=== PATIENT | female | born 1975 | race Caucasian/White ===

== ENCOUNTER 2018-05-01 13:39 | Emergency (ER) | END 2018-05-01 17:03 | disposition home or self-care (01) ==

== ENCOUNTER 2019-01-12 19:58 | Emergency (ER) | payer MEDICAID ==
[~2019-01-12] VITALS: Ht 162.6 cm; Wt 66.0 kg
[~2019-01-12 19:58] MED LIST: ALBU18HF INHALATION; ALBU8.5H8; BECL7.3A5
[2019-01-12 20:35] VITALS: BP 158/86; Ht 162.6 cm; Wt 66.0 kg
[2019-01-12] MEDS ORDERED: ALBUTEROL 0.5% (NEB) 2.5 MG/0.5 ML AMP INH STA ×2 (21:19→22:50)
[2019-01-12] MEDS ORDERED: LEVALBUTEROL (NEB) 1.25 MG/0.5 ML AMP INH STA (21:19)
[2019-01-12 21:25] VITALS: RESP 24
[2019-01-12] MEDS ORDERED: DEXAMETHASONE 10 MG/ML 1 ML INJ IM STA (21:34)
[2019-01-13] MEDS ORDERED: ATRO INH (00:14)
[2019-01-13] MEDS ORDERED: PRED50 PO (00:14)
[2019-01-13] MEDS ORDERED: ALBU2.5V3 NEB (00:14)
[2019-01-13] MEDS ORDERED: ALBU8.5H8 INH (00:14)
[2019-01-13 00:25] VITALS: PULSE 117
[2019-01-13] MEDS ORDERED: ACETAMINOPHEN 325 MG TAB PO ONE (00:30)
--- NOTE | 2019-01-14 03:40 | ERD ---
ER Documentation Chief Complaint Chief Complaint SOB X 1 DAY; HX OF ASTHMA; NO RELIEF FROM INHALER HPI This is a 43 year old F with hx of asthma who presents to the ED with complaints of an asthma exacerbation since yesterday. Pt states she started to feel short of breath last night and woke up wheezing in the nighttime. She states her sx gradually progressed until she felt short of breath, prompting her to come in today. She was using her albuterol inhaler and nebulized solution but ran out. She reports chest tightness, wheezing and shortness of breath. Does not know wh at triggered her asthma. Denies any recent URI type symptoms. States she was last hospitalized for her asthma at [facility] about 3 months ago. States that oral glucocorticoids usually help with her asthma exacerbations. ROS All systems reviewed and are negative except as per history of present illness. Medications Home Meds Active Scripts Albuterol Sulfate* (Albuterol Sulfate* Neb) 0.083%-3 Ml Neb, 2.5 MG NEB Q3H PRN for WHEEZING AND SOB, #30 VIAL Prov:JUAN CONTRERASC 01/13/19 Ipratropium [place]* (Atrovent HFA*) 12.9 Gm Aer.w.adap, 2 PUFF INH Q6 PRN for SHORTNESS OF BREATH, #1 EA Prov:JUAN CONTRERAS-C 01/13/19 Albuterol Sulfate* (Proair HFA*) 8.5 Gm Hfa.aer.ad, 2 PUFF INH Q4, #1 INHALER Prov:JUAN CONTRERAS-C 01/13/19 Prednisone (Prednisone) 50 Mg Tab, 50 MG PO DAILY for 5 Days, #5 TAB Prov:JUAN CONTRERAS-C 01/13/19 Albuterol Sulfate* (Ventolin HFA*) 18 Gm Hfa.aer.ad, 2 PUFF INHALATION Q4H, #1 INHALER Prov:ROJELIO GAN PA-C 05/01/18 Reported Medications Beclomethasone Dipropionate (Qvar) 7.3 Gm Aer.w.adap 03/02/11 Albuterol Sulfate* (Proair HFA*) 8.5 Gm Hfa.aer.ad 03/02/11 Allergies Allergies: Coded Allergies: No Known Drug Allergy (Unverified Allergy, Intermediate, NONE, 03/02/11) PMhx/Soc History of Surgery: Yes (Cholecystectomy) Anesthesia Reaction: No Hx Neurological Disorder: No Hx Respiratory Disorders: Yes (Asthma) Hx Cardiac Disorders: No Hx Psychiatric Problems: No Hx Miscellaneous Medical Probl: No Hx Alcohol Use: Yes (Social) Hx Substance Use: No Hx Tobacco Use: Yes (Cigarettes) Smoking Status: Former smoker Physical Exam Vitals Vital Signs Date Temp Pulse Resp B/P (MAP) Pulse Ox O2 O2 Flow FiO2 Time Delivery Rate 01/13/19 117 97 Room Air 00:25 01/12/19 100 Room Air 23:38 01/12/19 114 24 99 21 23:04 01/12/19 Nasal 21:48 Cannula 01/12/19 129 28 98 Nasal 2.0 21:27 Cannula 01/12/19 128 24 97 Room Air 21:25 01/12/19 99.5 125 20 158/86 97 20:35 (110) Physical Exam Const: + Mild respiratory distress. Appears anxious, stating "I can't breath," O2 sat of 97% on room air Head: Atraumatic Eyes: Normal Conjunctiva ENT: Normal External Ears, Nose and Mouth. Neck: Full range of motion. No meningismus. Resp: + Mild respiratory distress. Inspiratory and expiratory wheezing. No use of accessory muscles or respiration. Cardio: + Tachycardic. Regular rhythm, no murmurs, rubs or gallops and rhythm, no murmurs Abd: Soft, non tender, non distended. Normal bowel sounds Skin: No petechiae or rashes Ext: No cyanosis, or edema Neur: Awake and alert Psych: + Appears anxious Results 24 hrs Current Medications Medications Dose Sig/Gurpreet Start Time Status Last (Trade) Ordered Route PRN Stop Time Admin Dose Reason Admin Albuterol 5 mg ONCE STAT 01/12/19 DC (Proventil INH 21:19 01/12/19 0.5% (Neb)) 21:22 2.5 mg ONCE STAT 01/12/19 DC 01/12/19 Levalbuterol INH 21:19 01/12/19 21:26 (Xopenex 21:22 Neb) 10 mg ONCE STAT 01/12/19 DC 01/12/19 Dexamethasone IM 21:34 01/12/19 21:39 (Decadron) 21:36 Albuterol 15 mg ONCE STAT 01/12/19 DC 01/12/19 (Proventil INH 22:50 01/12/19 23:04 0.5% (Neb)) 22:52 650 mg ONCE ONCE 01/13/19 DC 01/13/19 Acetaminophen PO 00:30 01/13/19 00:29 (Tylenol 00:30 Tab) Procedures/MDM This is a 43 yo F with hx of asthma who presents to the ED with an asthma exacerbation after running out of her medications. O2 saturation on room air was 97% however was feeling short of breath and given 2L of supplemental O2. Pt had significant wheezing on physical exam which improved status post Decadron and 1 hour treatment of albuterol and xopenex. On reassessment, pt was talking in clear sentences, in no respiratory distress with improvement of her lung sounds. She requested Tylenol for her chest tightness which was given. At this time, pts respiratory status has stabilized while in the department and is appropriate for outpatient management. Exam not consistent with impending respiratory failure or cardiovascular collapse. I refilled her Albuterol MDI and neb solution and provided a short course of steroids. She was told to follow up with her PCP in 2 days, otherwise return to the ED for any new or worsening symptoms. Prior to discharge, patients vital signs have been reviewed PRESCRIPTIONS: Proair HFA, albuterol neb solution, Prednisone SPECIALIST FOLLOW UP RECOMMENDED: None Patient has been advised to follow up with primary care in 1-2 days. Patient's blood pressure was elevated (>120/80) but appears stable without evidence of hypertension emergency or urgency. The patient was counseled about the risks of hypertension and urged to pursue outpatient monitoring and therapy within a week with their primary care physician Departure Diagnosis: Primary Impression: Asthma with acute exacerbation Asthma severity: unspecified severity Asthma persistence: intermittent Qualified Codes: J45.21 - Mild intermittent asthma with (acute) exacerbation Condition: Stable Patient Instructions: Asthma, Acute (Adult) Referrals: COMMUNITY CLINICS YOU HAVE RECEIVED A MEDICAL SCREENING EXAM AND THE RESULTS INDICATE THAT YOU DO NOT HAVE A CONDITION THAT REQUIRES URGENT TREATMENT IN THE EMERGENCY DEPARTMENT. FURTHER EVALUATION AND TREATMENT OF YOUR CONDITION CAN WAIT UNTIL YOU ARE SEEN IN YOUR DOCTORS OFFICE WITHIN THE NEXT 1-2 DAYS. IT IS YOUR RESPONSIBILITY TO MAKE AN APPOINTMENT FOR FOLOW-UP CARE. IF YOU HAVE A PRIMARY DOCTOR --you should call your primary doctor and schedule an appointment IF YOU DO NOT HAVE A PRIMARY DOCTOR YOU CAN CALL OUR PHYSICIAN REFERRAL HOTLINE AT IF YOU CAN NOT AFFORD TO SEE A PHYSICIAN YOU CAN CHOSE FROM THE FOLLOWING [facility] [address] [facility] [address] [facility] [address] [facility] [address] [facility] [address] [facility] [facility]. [address] Additional Instructions: He has been given a list of clinics to follow-up within 2 days. Return to the ED for any new or worsening symptoms. JUAN CONTRERAS PA-C Jan 14, 2019 03:21
== END 2019-01-13 00:29 | disposition home or self-care (01) ==
LOC: FTE 19:58
DX: J45.21 Mild intermittent asthma with (acute) exacerbation (principal); Z87.891 Personal history of nicotine dependence
CPT/HCPCS: 94664; 96372; J1100; Z7502; Z7610

== ENCOUNTER 2019-02-19 01:36 | Emergency (ER) | payer MEDICAID ==
[~2019-02-19] VITALS: Ht 162.6 cm; Wt 66.4 kg
[~2019-02-19 01:36] MED LIST changes: +ALBU2.5V3 NEB; +ALBU8.5H8 INH; +ATRO INH; +PRED50 PO
[2019-02-19 01:37] VITALS: Ht 162.6 cm; Wt 66.4 kg
[2019-02-19] MEDS ORDERED: IPRATROPIUM (NEB) 0.5 MG/2.5 ML AMP INH STA (01:42)
[2019-02-19] MEDS ORDERED: ALBUTEROL 0.5% (NEB) 2.5 MG/0.5 ML AMP INH STA ×2 (01:42→03:13)
[2019-02-19] MEDS ORDERED: DEXAMETHASONE 10 MG/ML 1 ML INJ IM ONE (02:00)
--- NOTE | 2019-02-19 03:09 | ERD ---
ER Documentation Chief Complaint Chief Complaint ASTHMA ATTACK, CHEST PRESSURE, WHEEZING HPI This a 43-year female complains of sudden onset of shortness of breath of 2 hours ago with worsening shortness of breath. Patient has history of asthma says she feels like she is having an asthma attack. She says this feels like previous episodes. She said it was might of been triggered because she was dusting around the house. She has a mild cough as well. Denies any fevers or chills. Denies any other current complaints. ROS All systems reviewed and are negative except as per history of present illness. Medications Home Meds Active Scripts Albuterol Sulfate* (Albuterol Sulfate* Neb) 0.083%-3 Ml Neb, 2.5 MG NEB Q3H PRN for WHEEZING AND SOB, #30 VIAL Prov:JUAN CONTRERAS PA-C 01/13/19 Ipratropium [place]* (Atrovent HFA*) 12.9 Gm Aer.w.adap, 2 PUFF INH Q6 PRN for SHORTNESS OF BREATH, #1 EA Prov:JUAN CONTRERASC 01/13/19 Albuterol Sulfate* (Proair HFA*) 8.5 Gm Hfa.aer.ad, 2 PUFF INH Q4, #1 INHALER Prov:JUAN CONTRERASC 01/13/19 Prednisone (Prednisone) 50 Mg Tab, 50 MG PO DAILY for 5 Days, #5 TAB Prov:JUAN CONTRERASC 01/13/19 Albuterol Sulfate* (Ventolin HFA*) 18 Gm Hfa.aer.ad, 2 PUFF INHALATION Q4H, #1 INHALER Prov:ROJELIO GAN PA-C 05/01/18 Reported Medications Beclomethasone Dipropionate (Qvar) 7.3 Gm Aer.w.adap 03/02/11 Albuterol Sulfate* (Proair HFA*) 8.5 Gm Hfa.aer.ad 03/02/11 Allergies Allergies: Coded Allergies: No Known Drug Allergy (Unverified Allergy, Intermediate, NONE, 03/02/11) PMhx/Soc History of Surgery: Yes (Cholecystectomy) Anesthesia Reaction: No Hx Neurological Disorder: No Hx Respiratory Disorders: Yes (Asthma) Hx Cardiac Disorders: No Hx Psychiatric Problems: No Hx Miscellaneous Medical Probl: No Hx Alcohol Use: Yes (Social) Hx Substance Use: No Hx Tobacco Use: Yes (Cigarettes) Smoking Status: Current every day smoker Physical Exam Vitals Vital Signs Date Temp Pulse Resp B/P (MAP) Pulse Ox O2 O2 Flow FiO2 Time Delivery Rate 02/19/19 113 22 139/76 100 Nasal 03:00 (97) Cannula 02/19/19 112 20 99 Nasal 2.0 01:52 Cannula 02/19/19 Nasal 2 01:51 Cannula 02/19/19 97.9 125 25 150/89 97 01:37 (109) Physical Exam Const: No acute distress Head: Atraumatic Eyes: Normal Conjunctiva ENT: Normal External Ears, Nose and Mouth. Neck: Full range of motion. No meningismus. Resp: Clear to auscultation bilaterally Cardio: Regular rate and rhythm, no murmurs Abd: Soft, non tender, non distended. Normal bowel sounds Skin: No petechiae or rashes Back: No midline or flank tenderness Ext: No cyanosis, or edema Neur: Awake and alert Psych: Normal Mood and Affect Results 24 hrs Current Medications Medications Dose Sig/Gurpreet Start Time Status Last (Trade) Ordered Route PRN Stop Time Admin Dose Reason Admin Albuterol 10 mg ONCE STAT 02/19/19 DC 02/19/19 (Proventil INH 01:42 02/19/19 01:52 0.5% (Neb)) 01:43 Ipratropium 1 mg ONCE STAT 02/19/19 DC 02/19/19 [place] INH 01:42 02/19/19 01:52 (Atrovent 01:43 0.02% (Neb)) 10 mg ONCE ONCE 02/19/19 DC 02/19/19 Dexamethasone IM 02:00 02/19/19 01:53 (Decadron) 02:01 Procedures/MDM Emergency department course: Patient seen and [place] charges. Placed MFM evaluation. Placed on nuclear monitoring technician. Given continuous albuterol and complete continuous ipratropium over the course of 1 hour. Given Decadron 10 mg intramuscularly. Stat chest x-ray. Chest X-ray 1V Interpreted by me: Soft Tissue: No acute abnormali ties Bones: No acute abnormalities Mediastinum/Cardiac Silhouette/Lungs: [No acute abnormalities] Medical decision making: Patient's respiratory status has stabilized while in the department and is appropriate for outpatient work up. Exam and work up not consistent w/ impending respiratory failure or cardiovascular collapse. Departure Diagnosis: Primary Impression: Asthma with acute exacerbation Asthma severity: moderate Asthma persistence: unspecified Qualified [place]: J45.901 - Unspecified asthma with (acute) exacerbation Condition: Stable JORGITO WISE Feb 19, 2019 03:09
[2019-02-19] MEDS ORDERED: traMADol 50 MG TAB PO ONE (05:00)
[2019-02-19] MEDS ORDERED: AZIT250T PO (05:30)
[2019-02-19] MEDS ORDERED: ALBU2.5V3 NEB (05:30)
[2019-02-19] MEDS ORDERED: PRED20TA PO (05:30)
[2019-02-19] MEDS ORDERED: ALBU18HF INHALATION (05:30)
[2019-02-19 06:17] VITALS: BP 132/80; PULSE 112; RESP 20
== END 2019-02-19 06:18 | disposition home or self-care (01) ==
LOC: E/R 01:36
DX: J45.901 Unspecified asthma with (acute) exacerbation (principal); F17.210 Nicotine dependence, cigarettes, uncomplicated
CPT/HCPCS: 71045; 81025; 94644; 94645; 96372; J1100; Z7502; Z7610

== ENCOUNTER 2019-05-09 03:39 | Emergency (ER) | payer MEDICAID ==
[~2019-05-09] VITALS: Ht 162.6 cm; Wt 68.3 kg
[~2019-05-09 03:39] MED LIST changes: +AZIT250T PO; +PRED20TA PO
[2019-05-09 03:40] VITALS: Ht 162.6 cm; Wt 68.3 kg
[2019-05-09] MEDS ORDERED: DEXAMETHASONE 10 MG/ML 1 ML INJ IM STA (03:56)
[2019-05-09] MEDS ORDERED: LEVALBUTEROL (NEB) 1.25 MG/0.5 ML AMP INH STA ×2 (03:56→04:59)
[2019-05-09] MEDS ORDERED: IPRATROPIUM (NEB) 0.5 MG/2.5 ML AMP INH STA (03:56)
--- NOTE | 2019-05-09 03:59 | ERD ---
ER Documentation Chief Complaint Chief Complaint SOB X1DAY- COUGHING, COUPLES DAYS; HX OF ASTHMA-LAST USE ALBUTEROL X1HR HPI 43-year-old female with a history of asthma presenting with shortness of breath since yesterday that has worsened overnight. She is not sure what triggered it. She is complaining of shortness of breath and audible wheezing. She used her inhaler as well as her nebulizer last night with some improvement. However she is having significantly worsening shortness of breath so she decided to come in for evaluation. She thinks she has been having some allergy symptoms versus URI symptoms with runny nose and cough. No fevers or chills. No colored phlegm. ROS All systems reviewed and are negative except as per history of present illness. Medications Home Meds Active Scripts Prednisone* (Prednisone*) 20 Mg Tab, 40 MG PO DAILY for 4 Days, TAB Prov:LESLYMARCELINOJORGITO Lona 02/19/19 Azithromycin* (Zithromax*) 250 Mg Tablet, 250 MG PO .ZPACK DIRECTED, #6 TAB TAKE 500 MG (2 TABS) THE FIRST DAY THEN 250 MG (1 TAB) DAYS 2-5 Prov:BILLIEJORGITO S. 02/19/19 Albuterol Sulfate* (Ventolin HFA*) 18 Gm Hfa.aer.ad, 2 PUFF INHALATION Q4H, #1 INHALER Prov:MARIA LUZMAXIJORGITO Lona 02/19/19 Albuterol Sulfate* (Albuterol Sulfate* Neb) 0.083%-3 Ml Neb, 2.5 MG NEB Q4 PRN for SHORTNESS OF BREATH, #30 EA Prov:LESLYMARCELINOJORGITO S. 02/19/19 Albuterol Sulfate* (Albuterol Sulfate* Neb) 0.083%-3 Ml Neb, 2.5 MG NEB Q3H PRN for WHEEZING AND SOB, #30 VIAL Prov:DISHIGRIKIANZEPYUR N PA-C 01/13/19 Ipratropium [place]* (Atrovent HFA*) 12.9 Gm Aer.w.adap, 2 PUFF INH Q6 PRN for SHORTNESS OF BREATH, #1 EA Prov:DISHIGRIKIAN,ZEPYUR N PA-C 01/13/19 Albuterol Sulfate* (Proair HFA*) 8.5 Gm Hfa.aer.ad, 2 PUFF INH Q4, #1 INHALER Prov:SUZANNESUNSHINEJUAN Edmondson PA-C 01/13/19 Prednisone (Prednisone) 50 Mg Tab, 50 MG PO DAILY for 5 Days, #5 TAB Prov:NORMA CONTRERASJULIOCESAR Edmondson PA-C 01/13/19 Albuterol Sulfate* (Ventolin HFA*) 18 Gm Hfa.aer.ad, 2 PUFF INHALATION Q4H, #1 INHALER Prov:ROJELIO GAN PA-C 05/01/18 Reported Medications Beclomethasone Dipropionate (Qvar) 7.3 Gm Aer.w.adap 03/02/11 Albuterol Sulfate* (Proair HFA*) 8.5 Gm Hfa.aer.ad 03/02/11 Allergies Allergies: Coded Allergies: No Known Drug Allergy (Unverified Allergy, Intermediate, NONE, 03/02/11) PMhx/Soc History of Surgery: Yes (Cholecystectomy) Anesthesia Reaction: No Hx Neurological Disorder: No Hx Respiratory Disorders: Yes (Asthma) Hx Cardiac Disorders: No Hx Psychiatric Problems: No Hx Miscellaneous Medical Probl: No Hx Alcohol Use: Yes (Social) Hx Substance Use: No Hx Tobacco Use: Yes (Cigarettes) Smoking Status: Current some day smoker FmHx Family History: No diabetes Physical Exam Vitals Vital Signs Date Temp Pulse Resp B/P (MAP) Pulse Ox O2 O2 Flow FiO2 Time Delivery Rate 05/09/19 126 18 99 05:14 05/09/19 120 20 99 21 04:13 05/09/19 97.9 125 24 136/90 99 Room Air 03:46 (105) 05/09/19 98.4 129 30 150/83 98 03:40 (105) Physical Exam Const: Appears to be in mild respiratory distress but able to speak in full sentences. Nontoxic-appearing Head: Atraumatic Eyes: Normal Conjunctiva ENT: Normal External Ears, Nose and Mouth. Neck: Full range of motion. No meningismus. Resp: Tachypneic with wheezing in all lung rae. No rales or rhonchi. No retractions Cardio: Tachycardic with regular rhythm, no murmurs Abd: Soft, non tender, non distended. Normal bowel sounds Skin: No petechiae or rashes Back: No midline or flank tenderness Ext: No cyanosis, or edema Neur: Awake and alert Psych: Normal Mood and Affect Results 24 hrs Current Medications Medications Dose Sig/Gurpreet Start Time Status Last (Trade) Ordered Route PRN Stop Time Admin Dose Reason Admin 5 mg ONCE STAT 05/09/19 DC 05/09/19 Levalbuterol INH 03:56 04:12 (Xopenex 05/09/19 03:58 Neb) Ipratropium 1 mg ONCE STAT 05/09/19 DC 05/09/19 [place] INH 03:56 04:12 (Atrovent 05/09/19 03:58 0.02% (Neb)) 10 mg ONCE STAT 05/09/19 DC 05/09/19 Dexamethasone IM 03:56 04:03 (Decadron) 05/09/19 03:58 Ipratropium 0.5 mg ONCE STAT 05/09/19 DC 05/09/19 [place] NEB 04:59 05:13 (Atrovent 05/09/19 05:00 0.02% (Neb)) 1.25 mg ONCE STAT 05/09/19 DC 05/09/19 Levalbuterol INH 04:59 05:13 (Xopenex 05/09/19 05:00 Neb) Albuterol 10 mg ONCE STAT 05/09/19 DC (Proventil INH 05:48 0.5% (Neb)) 05/09/19 05:49 Procedures/MDM Initial Nursing notes reviewed. Previous Medical Records requested via the Electronic Health Record. EMERGENCY DEPARTMENT COURSE / MEDICAL DECISION MAKING: The patients shortness of breath is secondary to an asthma exacerbation. Vitals were tachycardia and tachypnea. Considered URI, pneumonia, allergic reaction, COPD, PE, ACS, pericardial effusion but less likely based on history and physical. I do not suspect pneumonia, pneumothorax, or sepsis. Nebulized albuterol/ipratropium ordered and steroids administered. Upon reassessment, patients symptoms have not improved significantly. She required more treatments while here. At the end of my shift, she is still not ready for discharge. She will be continued to be observed in the ER with another breathing treatment. If she does not respond well, she may need admission for close respiratory monitoring and frequent treatments. Patient will be signed out to the oncoming ED physician, Dr. Piña Critical Care: Time: 40 minutes Treatments/Evaluations: Emergent and rapid respiratory assessment and management with continuous monitoring. Advanced airway equipment at the ready, while the patient's respiratory symptoms were stabilized. Departure Diagnosis: Primary Impression: Asthma with acute exacerbation Asthma severity: moderate Asthma persistence: persistent Qualified Codes: J45.41 - Moderate persistent asthma with (acute) exacerbation Condition: CHRISTINA Moody MD May 09, 2019 03:59
[2019-05-09] MEDS ORDERED: IPRATROPIUM (NEB) 0.5 MG/2.5 ML AMP NEB STA (04:59)
[2019-05-09] MEDS ORDERED: ALBUTEROL 0.5% (NEB) 2.5 MG/0.5 ML AMP INH STA (05:48)
[2019-05-09] MEDS ORDERED: PRED20TA PO (09:00)
[2019-05-09] MEDS ORDERED: ALBU18HF INHALATION (09:00)
[2019-05-09 09:11] VITALS: BP 125/72; PULSE 98; RESP 18
== END 2019-05-09 09:14 | disposition home or self-care (01) ==
LOC: E/R 03:39
DX: J45.41 Moderate persistent asthma with (acute) exacerbation (principal); F17.210 Nicotine dependence, cigarettes, uncomplicated
CPT/HCPCS: 94640; 94644; 94645; 94664; 96372; J1100

== ENCOUNTER 2019-05-24 19:31 | Emergency (ER) | payer MEDICAID ==
[~2019-05-24] VITALS: Ht 162.6 cm; Wt 67.0 kg
[2019-05-24 19:34] VITALS: Ht 162.6 cm; Wt 67.0 kg
[2019-05-24] MEDS ORDERED: IPRATROPIUM (NEB) 0.5 MG/2.5 ML AMP NEB STA (20:21)
[2019-05-24] MEDS ORDERED: predniSONE 20 MG TAB PO STA (20:21)
[2019-05-24] MEDS ORDERED: ALBUTEROL 0.083% (NEB) 2.5 MG/3 ML AMP NEB STA (20:21)
--- NOTE | 2019-05-24 20:29 | ERD ---
ER Documentation Chief Complaint Chief Complaint Pt reports hx asthma, nebs and inhaler not helping HPI 43-year-old female with past medical history of asthma, anemia who presents with complaint of worsening shortness of breath and dyspnea despite home nebulizer treatment. States she recently ran out of nebulizer treatments. She has had intermittent cough that is productive of green sputum but otherwise denies fevers, chills, nausea, vomiting, diarrhea, abdominal pain, urinary symptoms. At time examination patient nontoxic-appearing with normal triage vital signs and no signs of respiratory distress. ROS All systems reviewed and are negative except as per history of present illness. Medications Home Meds Active Scripts Ipratropium [place]* (Atrovent HFA*) 12.9 Gm Aer.w.adap, 2 PUFF INH Q6 PRN for SHORTNESS OF BREATH, #1 EA Prov:RADHA BRANCH PA-C 05/24/19 Albuterol Sulfate* (Ventolin HFA*) 18 Gm Hfa.aer.ad, 2 PUFF INHALATION Q6H, #1 INHALER Prov:RADHA BRANCH PA-C 05/24/19 Prednisone* (Prednisone*) 20 Mg Tab, 40 MG PO DAILY for 4 Days, TAB Prov:RADHA BRANCH PA-C 05/24/19 Prednisone* (Prednisone*) 20 Mg Tab, 60 MG PO DAILY for 4 Days, TAB Prov:YING MA MD 05/09/19 Albuterol Sulfate* (Ventolin HFA*) 18 Gm Hfa.aer.ad, 2 PUFF INHALATION Q4H, #1 INHALER Prov:YING MA MD 05/09/19 Prednisone* (Prednisone*) 20 Mg Tab, 40 MG PO DAILY for 4 Days, TAB Prov:JORGITO WISE 02/19/19 Azithromycin* (Zithromax*) 250 Mg Tablet, 250 MG PO .NikkiPACK DIRECTED, #6 TAB TAKE 500 MG (2 TABS) THE FIRST DAY THEN 250 MG (1 TAB) DAYS 2-5 Prov:JORGITO WISE 02/19/19 Albuterol Sulfate* (Ventolin HFA*) 18 Gm Hfa.aer.ad, 2 PUFF INHALATION Q4H, #1 INHALER Prov:JORGITO WISE 02/19/19 Albuterol Sulfate* (Albuterol Sulfate* Neb) 0.083%-3 Ml Neb, 2.5 MG NEB Q4 PRN for SHORTNESS OF BREATH, #30 EA Prov:JORGITO WISE 02/19/19 Albuterol Sulfate* (Albuterol Sulfate* Neb) 0.083%-3 Ml Neb, 2.5 MG NEB Q3H PRN for WHEEZING AND SOB, #30 VIAL Prov:JUAN CONTRERAS PA-C 01/13/19 Ipratropium [place]* (Atrovent HFA*) 12.9 Gm Aer.w.adap, 2 PUFF INH Q6 PRN for SHORTNESS OF BREATH, #1 EA Prov:KYAIGRIKIJUAN GONSALEZ PA-C 01/13/19 Albuterol Sulfate* (Proair HFA*) 8.5 Gm Hfa.aer.ad, 2 PUFF INH Q4, #1 INHALER Prov:JUAN CONTRERAS PA-C 01/13/19 Prednisone (Prednisone) 50 Mg Tab, 50 MG PO DAILY for 5 Days, #5 TAB Prov:JUAN CONTRERAS N PA-C 01/13/19 Albuterol Sulfate* (Ventolin HFA*) 18 Gm Hfa.aer.ad, 2 PUFF INHALATION Q4H, #1 INHALER Prov:ROJELIO GANC 05/01/18 Reported Medications Beclomethasone Dipropionate (Qvar) 7.3 Gm Aer.w.adap 03/02/11 Albuterol Sulfate* (Proair HFA*) 8.5 Gm Hfa.aer.ad 03/02/11 Allergies Allergies: Coded Allergies: No Known Drug Allergy (Unverified Allergy, Intermediate, NONE, 03/02/11) PMhx/Soc Medical and Surgical Hx: pt denies Surgical Hx History of Surgery: No Anesthesia Reaction: No Hx Neurological Disorder: No Hx Respiratory Disorders: Yes (asthma) Hx Cardiac Disorders: No Hx Psychiatric Problems: No Hx Miscellaneous Medical Probl: No Hx Alcohol Use: No Hx Substance Use: No Hx Tobacco Use: No Smoking Status: Never smoker FmHx Family History: No diabetes, No coronary disease, No other Physical Exam Vitals Vital Signs Date Temp Pulse Resp B/P (MAP) Pulse Ox O2 O2 Flow FiO2 Time Delivery Rate 7/11/19 82 18 97 21 20:41 05/24/19 99.8 99 24 126/68 99 19:34 (87) Physical Exam Const: No acute distress Head: Atraumatic Eyes: Normal Conjunctiva ENT: Normal External Ears, Nose and Mouth. Neck: Full range of motion. No meningismus. Resp: Mild wheezing noted to bilateral lung rae, no crackles or rhonchi, g ood inspiratory effort Cardio: Regular rate and rhythm, no murmurs Abd: Soft, non tender, non distended. Normal bowel sounds Skin: No petechiae or rashes Back: No midline or flank tenderness Ext: No cyanosis, or edema Neur: Awake and alert Psych: Normal Mood and Affect Results 24 hrs Current Medications Medications Dose Sig/Gurpreet Start Time Status Last (Trade) Ordered Route PRN Stop Time Admin Dose Reason Admin Albuterol 2.5 mg ONCE STAT 05/24/19 DC 05/24/19 (Proventil NEB 20:21 20:37 0.083% (Neb)) 05/24/19 20:23 Ipratropium 0.5 mg ONCE STAT 05/24/19 DC 05/24/19 [place] NEB 20:21 20:37 (Atrovent 05/24/19 20:23 0.02% (Neb)) Prednisone 60 mg ONCE STAT 05/24/19 DC 05/24/19 (Prednisone) PO 20:21 20:32 05/24/19 20:23 Procedures/MDM Presents with cough and expiratory wheezing ML 2/2 asthma exacerbation. Mild exacerbation: No AMS, silent respirations, belly-breathing, or other sign of impending ventilatory failure. Patient diagnosed with asthma years prior. Never intubated or admitted to the hospital for asthma exacerbation. Unlikely PNA, CHF, COPD (Nonsmoker), FBAO, GERD. Workup Defer labs and imaging given clinically in exacerbation of known asthma with similar exacerbation presentations per patient. Therapies: Prednisone 60 mg PO. Albuterol 2.5-5mg q20min x3 OR 15mg/hr Ipratropium 0.5mg x1 Reassessment: Patient improved with albuterol and ipratropium in less than 3 hours. Disposition: Discharge home with return precautions. Aside from this acute exacerbation patient has been well controlled on baseline home regimen. Rx short steroid course, no plan to increase home asthma regimen. Advised to follow up with primary care physician within next 24-48 hours. Departure Diagnosis: Primary Impression: Asthma with acute exacerbation Condition: Stable RADHA BRANCH PA-C May 24, 2019 20:29
[2019-05-24 21:04] VITALS: BP 120/64; PULSE 85; RESP 18
[2019-05-24] MEDS ORDERED: ALBU18HF INHALATION (21:05)
[2019-05-24] MEDS ORDERED: PRED20TA PO (21:05)
[2019-05-24] MEDS ORDERED: ATRO INH (21:05)
== END 2019-05-24 21:09 | disposition home or self-care (01) ==
LOC: FTE 19:31
DX: J45.901 Unspecified asthma with (acute) exacerbation (principal)
CPT/HCPCS: 94664; J7512; Z7502; Z7610

== ENCOUNTER 2019-07-17 01:24 | Inpatient (IN) | payer MEDICAID ==
[~2019-07-17] VITALS: Ht 162.6 cm; Wt 68.9 kg
[~2019-07-17 01:24] MED LIST changes: +ALBU90AE INHALATION; +BECL10.6 IH; +LACT1CAP57 PO; +LEVO500T10 PO; +NEBU-113 MC; +PRED10TA PO
[2019-07-17] MEDS ORDERED: METHYLPREDNISOLONE 125 MG INJ IV STA (01:56)
[2019-07-17] MEDS ORDERED: MAGNESIUM SULFATE 2 GM/50 ML 50 ML IVPB STA (01:56)
[2019-07-17] MEDS ORDERED: SOD CHLORIDE 0.9% 1,000 ML IV STA (01:56)
[2019-07-17] MEDS ORDERED: LEVALBUTEROL (NEB) 1.25 MG/0.5 ML AMP INH STA ×2 (01:56→03:45)
[2019-07-17] MEDS ORDERED: IPRATROPIUM (NEB) 0.5 MG/2.5 ML AMP INH STA (01:56)
[2019-07-17] MEDS ORDERED: BISACODYL (EC) 5 MG TAB PO PRN (04:00)
[2019-07-17] MEDS ORDERED: ONDANSETRON 4 MG INJ IV PRN (04:00)
[2019-07-17] MEDS ORDERED: DOCUSATE SODIUM 100 MG CAP PO PRN (04:00)
[2019-07-17] MEDS ORDERED: NACL 0.9% 3 ML SYG IV SCH (04:00)
[2019-07-17] MEDS ORDERED: ACETAMINOPHEN 325 MG TAB PO PRN (04:00)
[2019-07-17] MEDS ORDERED: SOD CHLORIDE 0.9% 1,000 ML IV ONE ×2 (04:00)
[2019-07-17] MEDS ORDERED: morphine 2 MG INJ IV STA ×2 (04:27→15:29)
[2019-07-17] MEDS ORDERED: LEVALBUTEROL (NEB) 1.25 MG/0.5 ML AMP HHN PRN (04:30)
[2019-07-17] MEDS ORDERED: LEVALBUTEROL (NEB) 1.25 MG/0.5 ML AMP HHN SCH (05:00)
[2019-07-17] MEDS: LEVALBUTEROL (NEB) 1.25 MG/0.5 ML AMP HHN SCH ×5 (05:00→20:06)
[2019-07-17] MEDS: IPRATROPIUM (NEB) 0.5 MG/2.5 ML AMP HHN SCH ×5 (05:00→20:06)
[2019-07-17] MEDS: PANTOPRAZOLE (EC) 40 MG TAB PO SCH (06:39)
[2019-07-17] MEDS ORDERED: METHYLPREDNISOLONE 40 MG INJ IV SCH (09:00)
[2019-07-17] MEDS: METHYLPREDNISOLONE 40 MG INJ IV SCH ×2 (09:30→20:44)
[2019-07-17 09:37] VITALS: Ht 162.6 cm; Wt 68.9 kg
[2019-07-17 11:14] VITALS: BP 101/51; PULSE 95; RESP 18
[2019-07-17] MEDS: IBUPROFEN 600 MG TAB PO PRN (12:00)
[2019-07-17 15:19] VITALS: BP 116/61; PULSE 95; RESP 18
[2019-07-17] MEDS ORDERED: HYDROCODONE/APAP (5/325) TAB PO PRN (15:30)
[2019-07-17 19:43] VITALS: BP 132/74; PULSE 74; RESP 20
[2019-07-17] MEDS: DOCUSATE SODIUM 100 MG CAP PO SCH (20:45)
[2019-07-17] MEDS: morphine 4 MG/ML VIAL IV PRN (21:06)
[2019-07-18 00:28] VITALS: BP 129/76; PULSE 83; RESP 18
[2019-07-18 00:49] VITALS: BP 183/80; PULSE 47; RESP 20
[2019-07-18 02:00] VITALS: BP 123/70; PULSE 94; RESP 18
[2019-07-18] MEDS: IPRATROPIUM (NEB) 0.5 MG/2.5 ML AMP HHN SCH ×6 (02:11→20:00)
[2019-07-18] MEDS: LEVALBUTEROL (NEB) 1.25 MG/0.5 ML AMP HHN SCH ×6 (02:11→20:00)
[2019-07-18] MEDS: morphine 4 MG/ML VIAL IV PRN ×4 (02:22→19:55)
[2019-07-18] MEDS: PANTOPRAZOLE (EC) 40 MG TAB PO SCH (05:28)
[2019-07-18 07:59] VITALS: BP 111/64; PULSE 64; RESP 18
[2019-07-18] MEDS: DOCUSATE SODIUM 100 MG CAP PO SCH ×2 (09:11→20:00)
[2019-07-18] MEDS: METHYLPREDNISOLONE 40 MG INJ IV SCH ×2 (09:11→20:56)
[2019-07-18] MEDS: LEVOFLOXACIN 500MG/D5W (PMX) 100 ML IVPB SCH (12:20)
[2019-07-18 14:00] VITALS: BP 116/63; PULSE 91; RESP 18
[2019-07-18 19:48] VITALS: BP 130/71; PULSE 87; RESP 20
[2019-07-19] MEDS: morphine 4 MG/ML VIAL IV PRN ×6 (00:25→23:25)
[2019-07-19] MEDS: IPRATROPIUM (NEB) 0.5 MG/2.5 ML AMP HHN SCH ×6 (01:28→19:24)
[2019-07-19] MEDS: LEVALBUTEROL (NEB) 1.25 MG/0.5 ML AMP HHN SCH ×6 (01:28→19:25)
[2019-07-19 02:11] VITALS: BP 128/77; PULSE 90; RESP 18
[2019-07-19] MEDS: DIPHENHYDRAMINE 50 MG CAP PO PRN (02:25)
[2019-07-19] MEDS: PANTOPRAZOLE (EC) 40 MG TAB PO SCH (05:33)
[2019-07-19 07:53] VITALS: BP 110/55; PULSE 72; RESP 16
[2019-07-19] MEDS: DOCUSATE SODIUM 100 MG CAP PO SCH ×2 (09:50→21:14)
[2019-07-19] MEDS: METHYLPREDNISOLONE 40 MG INJ IV SCH ×2 (09:50→21:13)
[2019-07-19] MEDS: LEVOFLOXACIN 500MG/D5W (PMX) 100 ML IVPB SCH (12:07)
[2019-07-19 14:13] VITALS: BP 124/64; PULSE 81; RESP 16
[2019-07-19 19:44] VITALS: BP 122/69; PULSE 84; RESP 20
[2019-07-20] MEDS: IPRATROPIUM (NEB) 0.5 MG/2.5 ML AMP HHN SCH ×4 (00:51→12:05)
[2019-07-20] MEDS: LEVALBUTEROL (NEB) 1.25 MG/0.5 ML AMP HHN SCH ×4 (00:51→12:05)
[2019-07-20 02:07] VITALS: BP 128/74; PULSE 87; RESP 20
[2019-07-20] MEDS: DIPHENHYDRAMINE 50 MG CAP PO PRN (02:10)
[2019-07-20] MEDS: PANTOPRAZOLE (EC) 40 MG TAB PO SCH (05:26)
[2019-07-20] MEDS: morphine 4 MG/ML VIAL IV PRN (05:26)
[2019-07-20 08:00] VITALS: BP 122/74; PULSE 70; RESP 16
[2019-07-20] MEDS: DOCUSATE SODIUM 100 MG CAP PO SCH (08:48)
[2019-07-20] MEDS: METHYLPREDNISOLONE 40 MG INJ IV SCH (08:48)
[2019-07-20] MEDS: LEVOFLOXACIN 500MG/D5W (PMX) 100 ML IVPB SCH (11:31)
[2019-07-20] MEDS: IBUPROFEN 600 MG TAB PO PRN (11:39)
[2019-07-20 14:00] VITALS: BP 137/83; PULSE 84; RESP 18
[2019-07-20] MEDS ORDERED: CEPASTAT LOZENGE MT PRN (14:30)
== END 2019-07-20 16:46 | disposition home or self-care (01) | DRG 871 ==
LOC: E/R 01:24 → TEL 03:50 → PP2 07-18 00:40 → OBSVTOIN 07-18 16:39
PROVIDERS: ADMIT Family Medicine; ATTEND Family Medicine
PROC: 3E0F7GC Introduction of Other Therapeutic Substance into Respiratory Tract, Via Natural or Artificial Opening (ICD-10-PCS; principal; 2019-07-17)
DX: A41.9 Sepsis, unspecified organism (principal); J96.00 Acute respiratory failure, unspecified whether with hypoxia or hypercapnia; N17.9 Acute kidney failure, unspecified; J45.901 Unspecified asthma with (acute) exacerbation; Z99.81 Dependence on supplemental oxygen; J22 Unspecified acute lower respiratory infection; R00.0 Tachycardia, unspecified; J20.9 Acute bronchitis, unspecified; R73.9 Hyperglycemia, unspecified; T38.0X5A Adverse effect of glucocorticoids and synthetic analogues, initial encounter; Y92.019 Unspecified place in single-family (private) house as the place of occurrence of the external cause; Z87.891 Personal history of nicotine dependence
CPT/HCPCS: 71045; 71250; 80048; 80053; 80307; 83735; 84703; 85025; 93005; 93306; 94640; 94644; 94645; 94664; 96365; 96366; 96375; 99217; G0378; J1956; J2270; J2920; J2930; J3475; J7030

== ENCOUNTER 2019-09-08 12:59 | Inpatient (IN) | payer MEDICAID ==
[~2019-09-08] VITALS: Ht 162.6 cm; Wt 67.3 kg
[~2019-09-08 12:59] MED LIST changes: -ALBU18HF INHALATION; -ALBU8.5H8; -ALBU8.5H8 INH; -ATRO INH; -AZIT250T PO; -BECL7.3A5; +POLY17PO6 PO; -PRED50 PO
[2019-09-08] MEDS ORDERED: IPRATROPIUM (NEB) 0.5 MG/2.5 ML AMP INH STA (14:34)
[2019-09-08] MEDS ORDERED: ALBUTEROL 0.5% (NEB) 2.5 MG/0.5 ML AMP INH STA (14:34)
[2019-09-08] MEDS ORDERED: SOD CHLORIDE 0.9% 1,000 ML IV STA (14:34)
[2019-09-08] MEDS ORDERED: DEXAMETHASONE 10 MG/ML 1 ML INJ IV STA (14:34)
[2019-09-08] MEDS ORDERED: SOD CHLORIDE 0.9% 0 ML IV ONE (15:19)
[2019-09-08] MEDS ORDERED: ONDANSETRON 4 MG INJ IV PRN (18:30)
[2019-09-08] MEDS ORDERED: ACETAMINOPHEN 325 MG TAB PO PRN (18:30)
[2019-09-08] MEDS ORDERED: morphine 4 MG/ML VIAL IV STA (20:43)
[2019-09-08] MEDS ORDERED: ONDANSETRON 4 MG INJ IV STA (20:43)
[2019-09-08 22:30] VITALS: Ht 162.6 cm; Wt 67.3 kg
[2019-09-08 22:49] VITALS: BP 152/86; PULSE 64; RESP 18
[2019-09-08 23:15] VITALS: BP 125/61; PULSE 68; RESP 16
[2019-09-09] VITALS (8 sets, daily range): BP systolic 105–138; BP diastolic 59–72; PULSE 64–84; RESP 16–17
[2019-09-09] MEDS ORDERED: ONDANSETRON 4 MG INJ IV PRN
[2019-09-09] MEDS ORDERED: NACL 0.9% 3 ML SYG IV SCH
[2019-09-09] MEDS ORDERED: ACETAMINOPHEN 325 MG TAB PO PRN
[2019-09-09] MEDS ORDERED: SUMATRIPTAN 6 MG/0.5 ML INJ SC ONE (01:30)
[2019-09-09] MEDS: ALBUTEROL 0.083% (NEB) 2.5 MG/3 ML AMP NEB SCH ×6 (01:30→20:10)
[2019-09-09] MEDS ORDERED: morphine 2 MG INJ IV STA ×2 (01:59→07:35)
[2019-09-09] MEDS ORDERED: ALBUTEROL HFA 8 GM INHALER INH PRN (09:00)
[2019-09-09] MEDS ORDERED: predniSONE 10 MG TAB PO SCH (09:00)
[2019-09-09] MEDS: LACTOBACILLUS RHAMNOSUS CAP PO SCH ×2 (09:01→21:43)
[2019-09-09] MEDS: METHYLPREDNISOLONE 125 MG INJ IV SCH (09:02)
[2019-09-09] MEDS: ACETYLCYSTEINE 20% 4 ML VIAL NEB SCH ×4 (09:15→20:10)
[2019-09-09] MEDS: MOMETASONE 0.24 GM INHALER INH SCH ×2 (09:42→21:44)
[2019-09-09] MEDS: SOD FERRIC GLUC COMPLX 125 MG in SOD CHLORIDE 0.9% 100 ML IVPB SCH (14:41)
[2019-09-09] MEDS: HYDROCODONE/APAP (5/325) TAB PO PRN ×2 (15:44→21:44)
[2019-09-10] MEDS: ALBUTEROL 0.083% (NEB) 2.5 MG/3 ML AMP NEB SCH ×6 (01:00→20:37)
[2019-09-10] MEDS: ACETYLCYSTEINE 20% 4 ML VIAL NEB SCH ×6 (01:00→20:37)
[2019-09-10 01:32] VITALS: BP 135/65; PULSE 76; RESP 18
[2019-09-10] MEDS: DIPHENHYDRAMINE 25 MG CAP PO PRN ×2 (01:54→21:10)
[2019-09-10] MEDS: HYDROCODONE/APAP (5/325) TAB PO PRN ×3 (04:46→18:23)
[2019-09-10 08:18] VITALS: BP 112/62; PULSE 66; RESP 18
[2019-09-10] MEDS: METHYLPREDNISOLONE 125 MG INJ IV SCH (09:10)
[2019-09-10] MEDS: MOMETASONE 0.24 GM INHALER INH SCH ×2 (09:10→21:00)
[2019-09-10] MEDS: LACTOBACILLUS RHAMNOSUS CAP PO SCH ×2 (09:10→21:10)
[2019-09-10] MEDS ORDERED: FLU VACC QS 2019-20 (6MOS UP) 0.5 ML SYG IM* ONE (10:00)
[2019-09-10] MEDS: SOD FERRIC GLUC COMPLX 125 MG in SOD CHLORIDE 0.9% 100 ML IVPB SCH (12:21)
[2019-09-10] MEDS ORDERED: SOD CHLORIDE 0.9% 250 ML IV* ONE (14:14)
[2019-09-10 14:50] VITALS: BP 120/67; PULSE 79; RESP 16
[2019-09-10] MEDS ORDERED: IBUPROFEN 400 MG TAB PO PRN (18:00)
[2019-09-10] MEDS: POLYETHYLENE GLYCOL 17 GM PACKET PO PRN (18:23)
[2019-09-10 20:13] VITALS: BP 131/79; PULSE 70; RESP 18
[2019-09-10 20:15] VITALS: BP 129/71; PULSE 67; RESP 17
[2019-09-10] MEDS: SENNA TAB PO SCH (21:10)
[2019-09-10 21:15] VITALS: BP 137/87; PULSE 64; RESP 16
[2019-09-10] MEDS ORDERED: KETOROLAC 30 MG INJ IV ONE (22:00)
[2019-09-11] MEDS: ALBUTEROL 0.083% (NEB) 2.5 MG/3 ML AMP NEB SCH ×4 (01:23→12:35)
[2019-09-11] MEDS: ACETYLCYSTEINE 20% 4 ML VIAL NEB SCH ×4 (01:24→12:45)
[2019-09-11 02:00] VITALS: BP 146/87; PULSE 74; RESP 18
[2019-09-11 08:30] VITALS: BP 135/83; PULSE 70; RESP 16
[2019-09-11] MEDS ORDERED: predniSONE 20 MG TAB PO SCH (09:00)
[2019-09-11] MEDS: POLYETHYLENE GLYCOL 17 GM PACKET PO PRN (09:47)
[2019-09-11] MEDS: MOMETASONE 0.24 GM INHALER INH SCH (09:47)
[2019-09-11] MEDS: SENNA TAB PO SCH (09:47)
[2019-09-11] MEDS: LACTOBACILLUS RHAMNOSUS CAP PO SCH (09:47)
[2019-09-11] MEDS: HYDROCODONE/APAP (5/325) TAB PO PRN (13:26)
[2019-09-11] MEDS: SOD FERRIC GLUC COMPLX 125 MG in SOD CHLORIDE 0.9% 100 ML IVPB SCH (13:26)
[2019-09-11 15:04] VITALS: BP 133/72; PULSE 63; RESP 16
== END 2019-09-11 17:00 | disposition home or self-care (01) | DRG 202 ==
LOC: FTE 12:59 → 2NE 18:25
PROVIDERS: ADMIT Internal Medicine; ATTEND Internal Medicine
PROC: 30233N1 Transfusion of Nonautologous Red Blood Cells into Peripheral Vein, Percutaneous Approach (ICD-10-PCS; 2019-09-08)
PROC: 30233N1 Transfusion of Nonautologous Red Blood Cells into Peripheral Vein, Percutaneous Approach (ICD-10-PCS; principal; 2019-09-10)
DX: J45.901 Unspecified asthma with (acute) exacerbation (principal); I82.611 Acute embolism and thrombosis of superficial veins of right upper extremity; D50.0 Iron deficiency anemia secondary to blood loss (chronic); N93.8 Other specified abnormal uterine and vaginal bleeding; D25.9 Leiomyoma of uterus, unspecified; Z87.891 Personal history of nicotine dependence
CPT/HCPCS: 36415; 36430; 71045; 76830; 76856; 80048; 80053; 80061; 81003; 81025; 82728; 83036; 83540; 83735; 84100; 85025; 86850; 86900; 86901; 86920; 87081; 90686; 93971; 94640; 94644; 94664; 96361; 96374; J1100; J1885; J2270; J2405; J2916; J2930; J3030; J7030; J7040; J7512; P9016